=== PATIENT | male | born 1965 | race Caucasian/White ===

== ENCOUNTER → 2022-06-19 11:02 | Outpatient (CLI) | payer SELFPAY ==
[2022-06-19 12:19] LABS: Add Manual Diff / Slide Review NO; Basophils Absolute Auto 100 /uL (0-100); Basophils Percent Auto 0.8 % (0-2); Eosinophils Absolute Auto 100 /uL (0-450); Eosinophils Percent Auto 1.3 % (2-4); Hematocrit 43.6 % (41-53); Hemoglobin 14.8 g/dL (13.5-17.5); Lymphocytes Absolute Auto 1600 /uL (1100-4500); Lymphocytes Percent Auto 20.4 % (25-40); Mean Corpuscular Hemoglobin 28.3 PG (26-34); Mean Corpuscular Volume 83.1 fL (80-100); Monocytes Absolute Auto 600 /uL (0-900); Monocytes Percent Auto 6.9 % (3-14); Neutrophils Absolute Auto 5700 /uL (1500-7000); Neutrophils Percent Auto 70.6 % (50-75); Platelet Count 279 X10^3/uL (150-400); Red Blood Cell Count 5.25 X10^6/uL (4.5-5.9); Red Cell Distribution Width 13.4 % (11.6-14.8); White Blood Cell Count 8.1 X10^3/uL (4.5-11.0)
[2022-06-19 12:44] LABS: Alanine Aminotransferase 21 IU/L (<50); Albumin 4.5 g/dL (3.5-5.0); Albumin Globulin Ratio 1.4 (1.0-2.8); Alkaline Phosphatase 88 U/L (38-126); Amylase 44 U/L (30-110); Aspartate Aminotransferase 20 IU/L (17-59); BUN Creatinine Ratio 28.6 (6-22); Bilirubin Total 0.8 mg/dL (0.2-1.3); Blood Urea Nitrogen 22 mg/dL (9-20); Calcium 9.4 mg/dL (8.4-10.2); Carbon Dioxide 23 mmol/L (22-32); Chloride 95 mmol/L (98-107); Estimated Glomerular Filt Rate > 60 mL/min (>60); Globulin 3.2 g/dL (1.7-4.1); HEMOLYSIS < 15 (0-50); Lipase 85 U/L (23-300); Potassium 4.8 mmol/L (3.4-5.1); Sodium 131 mmol/L (137-145); Total Protein 7.7 g/dL (6.3-8.2)
[2022-06-19 13:01] LABS: Free T3, Triiodothyronine Free 3.83 pg/mL (2.77-5.27)
[2022-06-19 13:05] LABS: Hemoglobin A1C% w Est Avg Glu 11.8 % (4.0-6.0)
[2022-06-19 13:15] LABS: Thyroid Stimulating Hormone 0.172 uIU/mL (0.47-4.68)
[2022-06-19 13:42] LABS: Glucose 501 mg/dL (70-100)
== END ==
PROVIDERS: PCP Family Medicine; Referring Provider Nurse Practitioner; Visit Provider Nurse Practitioner
DX: Q45.3 Other congenital malformations of pancreas and pancreatic duct (principal); R73.01 Impaired fasting glucose
CPT/HCPCS: 36415; 80053; 82150; 83036; 83690; 84439; 84443; 84481; 85025

== ENCOUNTER 2023-10-22 18:28 | Emergency (ER) | payer SELFPAY ==
[2023-10-22] VITALS (10 sets, daily range): BP systolic 143–189; BP diastolic 63–89; PULSE 75–93; RESP 15–34; TEMP 37.4–39.4; O2SAT 92–96; BMI 32.5
--- NOTE | 2023-10-22 18:38 | DI.RAD.S_ITS ---
PROCEDURE: XR CHEST 1V INDICATIONS: chest pain TECHNIQUE: One view of the chest was acquired. COMPARISON: None. FINDINGS: Surgical changes and devices: None. Lungs and pleura: Lungs are clear. No pleural effusions or pneumothorax. Mediastinum: Mediastinal contours appear normal. Heart size is normal. Bones and chest wall: No suspicious bony lesions. Overlying soft tissues appear unremarkable. IMPRESSION: No acute pulmonary process. Dictated by: Rabia Ferreira M.D. on 10/22/2023 at 19:26 Approved by: Rabia Ferreira M.D. on 10/22/2023 at 19:26
--- NOTE | 2023-10-22 18:40 | EKG_ITS ---
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
--- NOTE | 2023-10-22 19:03 | PC.NURSE ---
Patient states he started having a cough with pain between his shoulder blades last night. Today patient was out in sun became dizzy and had fall too weak and unable to get up after fall.
[2023-10-22 19:14] LABS: Prothrombin Time 11.3 SECONDS (9.4-12.5)
[2023-10-22 19:16] LABS: PTT Partial Thromboplastin Tim 31 SECONDS (25.1-36.5)
[2023-10-22] MEDS: SODIUM CHLORIDE 0.9% 1,000 ML 1000 ML IV ×2 (19:18→20:06)
[2023-10-22 19:19] LABS: Add Manual Diff / Slide Review NO; Basophils Absolute Auto 0 /uL (0-100); Basophils Percent Auto 0.4 % (0-2); Eosinophils Absolute Auto 0 /uL (0-450); Eosinophils Percent Auto 0.2 % (2-4); Hematocrit 41.2 % (41-53); Hemoglobin 14.3 g/dL (13.5-17.5); Lymphocytes Absolute Auto 700 /uL (1100-4500); Lymphocytes Percent Auto 8.7 % (25-40); Mean Corpuscular HGB Conc 34.7 % (30-36); Mean Corpuscular Hemoglobin 29.1 PG (26-34); Monocytes Absolute Auto 1100 /uL (0-900); Monocytes Percent Auto 13.2 % (3-14); Neutrophils Absolute Auto 6400 /uL (1500-7000); Neutrophils Percent Auto 77.5 % (50-75); Platelet Count 242 X10^3/uL (150-400); Red Blood Cell Count 4.91 X10^6/uL (4.5-5.9); Red Cell Distribution Width 12.9 % (11.6-14.8); White Blood Cell Count 8.2 X10^3/uL (4.5-11.0)
[2023-10-22] MEDS: cefTRIAXone 2,000 MG in SODIUM CHLORIDE 0.9% 100 ML 200 MG IV (19:19)
[2023-10-22] MEDS: ASPIRIN 81 MG CHEW TAB 324 MG PO (19:19)
[2023-10-22 19:30] LABS: Alanine Aminotransferase 19 IU/L (<50); Albumin 4.5 g/dL (3.5-5.0); Albumin Globulin Ratio 1.4 (1.0-2.8); Alkaline Phosphatase 79 U/L (38-126); Aspartate Aminotransferase 25 IU/L (17-59); BUN Creatinine Ratio 25.5 (6-22); Blood Urea Nitrogen 25 mg/dL (9-20); Carbon Dioxide 23 mmol/L (22-32); Chloride 96 mmol/L (98-107); Creatine Kinase 78 U/L (55-170); Estimated Glomerular Filt Rate > 60 mL/min (>60); Globulin 3.2 g/dL (1.7-4.1); Glucose 474 mg/dL (70-100); HEMOLYSIS 23 (0-50); Lipase 69 U/L (23-300); Magnesium 2.1 mg/dL (1.6-2.3); Potassium 4.5 mmol/L (3.4-5.1); Sodium 129 mmol/L (137-145); Total Protein 7.7 g/dL (6.3-8.2)
[2023-10-22 19:31] LABS: Adenovirus Not Detected (Not Detect); B. parapertussis Not Detected (Not Detecte); Bordetella pertussis Not Detected (Not Detect); Chlamydophila pneumoniae Not Detected (Not Detect); Coronavirus 229E Not Detected (Not Detect); Coronavirus HKU1 Not Detected (Not Detect); Coronavirus NL 63 Not Detected (Not Detect); Coronavirus OC43 Not Detected (Not Detect); Human Metapneumovirus Not Detected (Not Detect); Human Rhinovirus/Enterovirus Not Detected (Not Detect); Influenza A Not Detected (Not Detect); Influenza B Not Detected (Not Detect); Mycoplasma pneumoniae Not Detected (Not Detect); Parainfluenza Virus 1 Not Detected (Not Detect); Parainfluenza Virus 2 Not Detected (Not Detect); Parainfluenza Virus 3 Not Detected (Not Detect); Parainfluenza Virus 4 Not Detected (Not Detect); Respiratory Syncytial Virus Not Detected (Not Detect)
[2023-10-22 19:32] LABS: Lactate (Lactic Acid) 3.2 mmol/L (0.7-2.1)
[2023-10-22 19:42] LABS: Troponin I 0.013 ng/mL (0.01-0.034)
[2023-10-22 19:47] LABS: SARS- CoV-2 Detected (Not Detecte)
[2023-10-22 19:48] LABS: Procalcitonin 0.179 ng/mL (<0.5)
--- NOTE | 2023-10-22 19:55 | ED.FEVER ---
HPI - Fever General Chief Complaint: Fever Stated Complaint: Dizziness, Fall. No thinners. Time Seen by Provider: 10/22/23 18:38 Source: patient Mode of arrival: Ambulatory History of Present Illness HPI Narrative: 57-year-old male with history of diabetes presents by EMS for evaluation after a fall. Patient walks with a walker at baseline and states that while he was walking ?I went too fast and it (the walker) got away from me? and he fell forward. Patient denies hitting his head, denies loss of consciousness, denies use of blood thinners. He states that he was felt generally poorly for ?months?. Patient tells triage that he thinks he may have a blocked artery because he has a ringing in his ears that has been present for several months. Patient noted to be febrile in triage. Related Data Previous Rx's Medication Instructions Recorded blood-glucose meter (Blood Glucose #1 ea 07/18/22 Monitoring kit) lancet with blood glucose test #300 ea 07/18/22 strips and pen needles combo pack metformin 500 mg tablet,extended 500 mg PO BID #60 tabs 07/18/22 release 24 hr Allergies Allergy/AdvReac Type Severity Reaction Status Date / Time No Known Drug Allergies Allergy Verified 10/22/23 18:37 Patient History Medical History Hyperlipidemia Hypertension Type 2 diabetes mellitus History of diabetes mellitus Surgical History History of coronary artery stent placement Social History Smoking Status: Former smoker Smoking Status: Former smoker alcohol intake frequency: 0-2 drinks per day Substance Use Type: does not use Exam Initial Vital Signs Initial Vital Signs: Vital Signs Pulse Rate 93 H 10/22/23 18:28 Pulse Oximetry 95 10/22/23 18:28 Const: Awake, alert, appears chronically unwell, disheveled Cardiac: regular rate, regular rhythm RESP: unlabored, clear bilaterally, no wheezing Skin: Warm, Dry, intact, no rashes Neuro: AO x3, CN II-XII grossly intact, moves all extremities, ambulatory with walker Course Orders Ordered: ED Orders 10/22/23 20:56 Urine Microscopic Stat Discontinued Medications Acetaminophen (Acetaminophen 325 Mg Tablet) 975 mg PO NOW ONE Stop: 10/22/23 19:56 Last Admin: 10/22/23 20:06 Dose: 975 mg Documented By: DUSTIN Aspirin (Aspirin 81 Mg Chew Tab) 324 mg PO NOW ONE Stop: 10/22/23 18:39 Last Admin: 10/22/23 19:19 Dose: 324 mg Documented By: JORGE Ceftriaxone Sodium 2,000 mg/ (Sodium Chloride) 100 mls @ 200 mls/hr IV NOW ONE Stop: 10/22/23 18:39 Last Infusion: 10/22/23 20:00 Dose: Infused Documented By: Admin: 10/22/23 19:19 Dose: 200 mls/hr Documented By: JORGE Sodium Chloride (Normal Saline 0.9%) 1,000 mls @ 1,000 mls/hr IV BOLUS ONE Stop: 10/22/23 19:38 Last Infusion: 10/22/23 20:18 Dose: Infused Documented By: [facility] Admin: 10/22/23 19:18 Dose: 1,000 mls/hr Documented By: DUSTIN Sodium Chloride (Normal Saline 0.9%) 1,000 mls @ 1,000 mls/hr IV BOLUS ONE Stop: 10/22/23 20:54 Last Infusion: 10/22/23 22:00 Dose: Infused Documented By: Admin: 10/22/23 20:06 Dose: 1,000 mls/hr Documented By: [facility] Vital Signs Vital signs: Vital Signs - 8 hr 10/22/23 22:51 Temperature 99.3 F Pulse Rate 75 Respiratory Rate 22 Blood Pressure 143/63 H Pulse Oximetry 92 MDM - Fever Differential Diagnosis Differential diagnosis: Likely cellulitis, fever of unknown origin and gastroenteritis Lab Data 10/22/23 18:54 10/22/23 18:54 Labs: Lab Results 10/22/23 10/22/23 10/22/23 Range/Units 18:35 18:54 20:56 WBC 8.2 (4.5-11.0) X10^3/uL RBC 4.91 (4.5-5.9) X10^6/uL Hgb 14.3 (13.5-17.5) g/dL Hct 41.2 (41-53) % MCV 84.0 (80-100) fL MCH 29.1 (26-34) PG MCHC 34.7 (30-36) % RDW 12.9 (11.6-14.8) % Plt Count 242 (150-400) X10^3/uL Neut % (Auto) 77.5 H (50-75) % Lymph % (Auto) 8.7 L (25-40) % [place] % (Auto) 13.2 (3-14) % Eos % (Auto) 0.2 L (2-4) % Baso % (Auto) 0.4 (0-2) % Neut # (Auto) 6400 (2948-4326) /uL Lymph # (Auto) 700 L (9410-6709) /uL [place] # (Auto) 1100 H (0-900) /uL Eos # (Auto) 0 (0-450) /uL Baso # (Auto) 0 (0-100) /uL PT 11.3 (9.4-12.5) SECONDS INR 1.0 (0.9-1.3) APTT 31 (25.1-36.5) SECONDS Sodium 129 L (137-145) mmol/L Potassium 4.5 (3.4-5.1) mmol/L Chloride 96 L (98-107) mmol/L Carbon Dioxide 23 (22-32) mmol/L BUN 25 H (9-20) mg/dL Creatinine 0.98 (0.66-1.25) mg/dL Estimated GFR > 60 (>60) mL/min BUN/Creatinine Ratio 25.5 H (6-22) Glucose 474 H (70-100) mg/dL Lactate 3.2 H (0.7-2.1) mmol/L Calcium 9.0 (8.4-10.2) mg/dL Magnesium 2.1 (1.6-2.3) mg/dL Total Bilirubin 1.0 (0.2-1.3) mg/dL AST 25 (17-59) IU/L ALT 19 (<50) IU/L Alkaline Phosphatase 79 (38-126) U/L Total Creatine Kinase 78 (55-170) U/L Troponin I 0.013 (0.01-0.034) ng/mL Total Protein 7.7 (6.3-8.2) g/dL Albumin 4.5 (3.5-5.0) g/dL Globulin 3.2 (1.7-4.1) g/dL Albumin/Globulin Ratio 1.4 (1.0-2.8) Lipase 69 (23-300) U/L Procalcitonin 0.179 (<0.5) ng/mL Urine RBC 0-1/hpf (0-5/HPF) Urine WBC None seen (0-5/HPF) Ur Squamous Epith Cells None seen (0-5/HPF) Urine Bacteria None seen (None) Hyaline Casts None seen (None) Ur Culture Indicated? Cult not indicated Vol Urine Centrifuged 10ml (spun) Chlamy pneumoniae PCR Not detected (Not Detect) Adenovirus (PCR) Not detected (Not Detect) B.parapertussis DNA PCR Not detected (Not Detecte) Coronavirus OC43 (PCR) Not detected (Not Detect) Coronavirus HKU1 (PCR) Not detected (Not Detect) Coronavirus 229E (PCR) Not detected (Not Detect) SARS-CoV-2 (PCR) Detected H (Not Detecte) Coronavirus NL63 (PCR) Not detected (Not Detect) Human Metapneumovir PCR Not detected (Not Detect) Influenza Type A (PCR) Not detected (Not Detect) Influenza Type B (PCR) Not detected (Not Detect) M. pneumoniae (PCR) Not detected (Not Detect) Parainfluenza 1 (PCR) Not detected (Not Detect) Parainfluenza 2 (PCR) Not detected (Not Detect) Parainfluenza 3 (PCR) Not detected (Not Detect) Parainfluenza 4 (PCR) Not detected (Not Detect) RSV (PCR) Not detected (Not Detect) Entero/Rhino (PCR) Not detected (Not Detect) Urine Dip Bedside Urine Glucose 1000 mg/dl Bedside Urine Bilirubin - Negative Bedside Urine Ketone - Negative Urine Specific [place] 1.015 Bedside Urine Occult Blood ++ Bedside Urine pH 6.0 Bedside Urine Protein ++ 100 Bedside Urine Urobilinogen - Negative Bedside Urine Nitrite - Negative Bedside Urine Leukocytes - Negative Esterase Imaging Data Chest x-ray: Radiologist's Impression: PROCEDURE: XR CHEST 1V INDICATIONS: chest pain TECHNIQUE: One view of the chest was acquired. COMPARISON: None. FINDINGS: Surgical changes and devices: None. Lungs and pleura: Lungs are clear. No pleural effusions or pneumothorax. Mediastinum: Mediastinal contours appear normal. Heart size is normal. Bones and chest wall: No suspicious bony lesions. Overlying soft tissues appear unremarkable. IMPRESSION: No acute pulmonary process. Dictated by: Rabia Ferreira M.D. on 10/22/2023 at 19:26 Approved by: Rabia Ferreira M.D. on 10/22/2023 at 19:26 ECG Data Interpretation: Normal sinus rhythm at 89 beats per minute. Normal axis, normal intervals, no ST T wave changes MDM Narrative Medical decision making narrative: Chronically unwell appearing patient presenting for evaluation after ground level fall. Found to be febrile on triage. No obvious source based on patient's exam and presenting complaint of generalized weakness. Empiric dose of Rocephin ordered, however patient has upper respiratory congestion and nonproductive cough suggest viral symptoms. Laboratory work shows WBC count 8.2, hemoglobin 14.3, platelet count 242, sodium 129, potassium 4.5, CO2 23, creatinine 0.98, glucose 474, troponin 0.013, procalcitonin 0.179. Chest x-ray negative for acute findings. Patient tested positive for COVID-19 on respiratory panel. Patient was given several L of IV fluids for hydration and Tylenol for antipyretic properties. He was counseled on his diagnosis and normal laboratory work other than elevated glucose. Patient was counseled to decrease sugar intake, when he arrived he had a nearly empty bottle of orange starburst flavored soda that it was likely contributing to his elevated sugars. Patient counseled on the importance of primary care follow up and compliance with diabetic medications. Discharge Plan Departure Patient Disposition: Home Clinical Impression: COVID-19, Hyperglycemia Instructions: COVID-19 Activity Restrictions/Additional Instructions: Your labs show that you have COVID-19 and a high blood sugar. Avoid sugary foods such as sodas or candy. Please follow up with a primary care doctor Prescriptions: No Action metformin 500 mg tablet extended release 24 hr 500 mg PO BID Qty: 60 3RF Rx Instructions: 1 tab (500mg) with dinner x3 days, then 1 tab (500mg) twice daily with food x2 weeks, then 2 tabs twice per day with food thereafter. (DME) blood-glucose meter [Blood Glucose Monitoring] Kit See Rx Instructions .Route Qty: 1 3RF Rx Instructions: Use to check blood sugar 4x daily (DME) lancet-gluc test strip-needles Combo Pack See Rx Instructions .Route Qty: 300 3RF Rx Instructions: Use to check blood sugar 4x daily Referrals: Maddie Mota ARNP [Primary Care Provider] - Stand Alone Forms: Patient Portal/API
[2023-10-22] MEDS: ACETAMINOPHEN 325 MG TABLET 975 MG PO (20:06)
[2023-10-22 20:34] LABS: Reflexed Lactate in 2 Hours Y
[2023-10-22 21:26] LABS: Bacteria Urine None Seen; RBC Urine 0-1/HPF (0-5/HPF); Urine Volume 10mL (spun); WBC Urine None Seen (0-5/HPF)
[2023-10-22 21:27] LABS: Culture Indicated Urine Cult Not Indicated; Hyaline Casts Urine None Seen; Squamous Epithelial Cell Urine None Seen (0-5/HPF)
== END 2023-10-22 23:00 | disposition home or self-care (01) ==
PROVIDERS: Emergency Provider Emergency Medicine; PCP Nurse Practitioner
DX: U07.1 COVID-19 (principal); E11.65 Type 2 diabetes mellitus with hyperglycemia; R07.9 Chest pain, unspecified; W18.30XA Fall on same level, unspecified, initial encounter
CPT/HCPCS: 36415; 71045; 80053; 81003; 81015; 82550; 83605; 83690; 83735; 84145; 84484; 85025; 85610; 85730; 87040; 87633; 93005; 96361; 96365; 99284; 99285; J0696

== ENCOUNTER 2025-02-25 09:26 | Observation (INO) | payer OTHER, SELFPAY ==
[2025-02-25] VITALS (25 sets, daily range): BP systolic 122–220; BP diastolic 58–103; PULSE 60–78; RESP 16–28; TEMP 36.6–37.1; O2SAT 95–99; BMI 32.5
--- NOTE | 2025-02-25 09:28 | DI.RAD.S_ITS ---
PROCEDURE: XR CHEST 1V
--- NOTE | 2025-02-25 09:33 | EKG_ITS ---
[facility]
--- NOTE | 2025-02-25 09:33 | ED_ITS ---
HPI - Chest Pain
--- NOTE | 2025-02-25 09:33 | ED.CHESTPAIN ---
HPI - Chest Pain General Chief Complaint: Chest Pain Stated Complaint: Pain in legs, arms, back, chest Time Seen by Provider: 02/25/25 09:29 History of Present Illness HPI narrative: Patient brought in by ambulance from the street. Patient was walking and had substernal chest tightness pain radiated to the back. Lasted about 10 or 15 minutes. Currently symptom free. No nausea or sweating or syncope. Patient has history of cardiac stent with 93% blockage he recalls from 3 years ago in [place]. Patient does not have any providers at this time. Does not smoke. Is not on any medications for his heart or diabetes. He has had off and on chest discomfort for a couple of years since his heart attack 3 years ago. [place]. Related Data Previous Rx's ?Medication ?Instructions ?Recorded blood-glucose meter (Blood Glucose #1 ea 07/18/22 Monitoring kit) lancet with blood glucose test #300 ea 07/18/22 strips and pen needles combo pack metformin 500 mg tablet,extended 1,000 mg (2 x 500 mg) PO BID #180 11/05/23 release 24 hr tabs Allergies Allergy/AdvReac Type Severity Reaction Status Date / Time No Known Drug Allergies Allergy Verified 02/25/25 09:34 Review of Systems Review of Systems Narrative: GENERAL: Negative chills, fatigue, malaise, fever, sweats. HEENT: Negative sinus pain, ear pain, sore throat RESPIRATORY: Negative dyspnea, cough CARDIOVASCULAR: Positive chest pain, negative palpitations GASTROINTESTINAL: Negative vomiting, nausea, abdominal pain : Negative dysuria, frequency, hematuria MUSCULOSKELETAL: Negative muscle or bony pain SKIN: Negative rash, skin lesions NEUROLOGIC: Negative weakness, numbness ROS Unobtainable: All systems reviewed & are unremarkable except as noted in HPI and below Patient History Medical History Hyperlipidemia Hypertension Type 2 diabetes mellitus History of diabetes mellitus Surgical History History of coronary artery stent placement Social History household members: none Smoking Status: Former smoker alcohol intake: current alcohol intake frequency: 0-2 drinks per day Exam Narrative Exam Narrative: GENERAL: in no distress, not toxic not dyspneic HEAD: Normocephalic. EYES: Pupils equal round ENT: Mucous membranes moist. NECK: Trachea midline. CARDIOVASCULAR: Regular rate and rhythm RESPIRATORY: Clear to auscultation. Breath sounds equal bilaterally. No wheezes, rales, or rhonchi. GASTROINTESTINAL: Abdomen soft, non-tender BACK: No flank tenderness. EXTREMITIES: No gross deformities. NEURO: AOx4. Clear speech SKIN: Warm and dry PSYCH: Not anxious, is cooperative Initial Vital Signs Initial Vital Signs: Vital Signs Pulse Rate 76 02/25/25 09:29 Pulse Oximetry 99 02/25/25 09:29 Scores HEART Score Heart Score history: Slightly Suspicious Heart Score EKG: Normal Heart Score Age: 45-64 years old Heart Score risk factors: > 3 risk factors or hx of atherosclerotic disease Heart Score troponin: < or = to normal limit Heart Score Total: 3 Course Orders Ordered: Aspirin (Aspirin Ec 81 Mg Tablet) 81 mg PO DAILY ON LICENSE OF [facility] Last Admin: 02/26/25 08:36 Dose: 81 mg Documented By: UGILLE Heparin Sodium (Porcine) (Heparin 5,000 Unit/Ml Vial) 5,000 unit SUBCUT BID ON LICENSE OF [facility] Last Admin: 02/26/25 08:36 Dose: 5,000 unit Documented By: Admin: 02/25/25 22:26 Dose: 5,000 unit Documented By: MALINI Sodium Chloride (Normal Saline 0.9%) 1,000 mls @ 100 mls/hr IV CONT ON LICENSE OF [facility] Last Admin: 02/26/25 03:48 Dose: 100 mls/hr Documented By: Infusion: 02/26/25 00:08 Dose: Infused Documented By: Admin: 02/25/25 14:08 Dose: 100 mls/hr Documented By: ANNA MARIE Dextrose (D10w) 100 mls @ 1,200 mls/hr IV PRN PRN PRN Reason: Hypoglycemia Insulin Glargine (Insulin Glargine 100 Unit/Ml 3ml Pen) 20 unit SUBCUT BEDTIME ON LICENSE OF [facility] Last Admin: 02/25/25 17:11 Dose: 20 unit Documented By: ANNA MARIE Co-signed By: RLSmiley Insulin Human Lispro (Insulin Lispro 100 Unit/Ml 3ml Vial) 0 unit SUBCUT ACHS ON LICENSE OF [facility]; Protocol Last Admin: 02/26/25 08:43 Dose: 1 unit Documented By: GUILLE Co-signed By: MALINI(2) Admin: 02/25/25 22:28 Dose: 2 unit Documented By: MALINI Co-signed By: Admin: 02/25/25 17:02 Dose: 5 unit Documented By: ANNA MARIE Co-signed By: SILVIA Admin: 02/25/25 12:13 Dose: 8 unit Documented By: ANNA MARIE Co-signed By: JOANNA Morphine Sulfate (Morphine 4 Mg/Ml Inj) 3 mg IV Q2HR PRN PRN Reason: Pain, Severe (7-10) Naloxone HCl (Naloxone 0.4 Mg/Ml Vial) 0.2 mg IV Q2MIN PRN PRN Reason: Opiate Reversal Ondansetron HCl (Ondansetron 4 Mg/2 Ml Inj) 4 mg IV Q8HR PRN PRN Reason: Nausea And Vomiting Discontinued Medications Aspirin (Aspirin 81 Mg Chew Tab) 324 mg PO NOW ONE Stop: 02/25/25 09:29 Last Admin: 02/25/25 09:42 Dose: 324 mg Documented By: SILVIA Atorvastatin Calcium (Atorvastatin 20 Mg Tablet) 40 mg PO NOW ONE Stop: 02/25/25 11:19 Last Admin: 02/25/25 12:15 Dose: 40 mg Documented By: ANNA MARIE Vital Signs Vital signs: Vital Signs - 8 hr 02/25/25 09:29 02/25/25 09:30 02/25/25 09:30 Temperature 98.0 F Pulse Rate 76 75 76 Respiratory Rate 16 28 H Blood Pressure 196/103 H Pulse Oximetry 99 99 98 Oxygen Delivery Method Room Air 02/25/25 09:32 02/25/25 09:32 02/25/25 10:00 Temperature Pulse Rate 78 72 Respiratory Rate 25 H Blood Pressure 196/103 H Pulse Oximetry 96 Oxygen Delivery Method 02/25/25 10:00 02/25/25 10:30 02/25/25 10:30 Temperature Pulse Rate 70 Respiratory Rate 26 H Blood Pressure 181/80 H 177/81 H Pulse Oximetry 95 Oxygen Delivery Method 02/25/25 11:00 Temperature Pulse Rate 67 Respiratory Rate 21 Blood Pressure Pulse Oximetry 95 Oxygen Delivery Method MDM - Chest Pain Lab Data 02/26/25 05:40 02/26/25 05:40 Labs: Lab Results 02/25/25 Range/Units 09:20 WBC 8.6 (4.5-11.0) X10^3/uL RBC 5.08 (4.5-5.9) X10^6/uL Hgb 14.6 (13.5-17.5) g/dL Hct 42.2 (41-53) % MCV 83.0 (80-100) fL MCH 28.7 (26-34) PG MCHC 34.5 (30-36) % RDW 13.1 (11.6-14.8) % Plt Count 259 (150-400) X10^3/uL Neut % (Auto) 64.3 (50-75) % Lymph % (Auto) 26.1 (25-40) % [place] % (Auto) 6.2 (3-14) % Eos % (Auto) 2.5 (2-4) % Baso % (Auto) 0.9 (0-2) % Neut # (Auto) 5600 (0518-9047) /uL Lymph # (Auto) 2300 (9146-5638) /uL [place] # (Auto) 500 (0-900) /uL Eos # (Auto) 200 (0-450) /uL Baso # (Auto) 100 (0-100) /uL PT 10.1 (9.4-12.5) SECONDS INR 0.9 (0.9-1.3) APTT 23 L (25.1-36.5) SECONDS Sodium 131 L (137-145) mmol/L Potassium 4.8 (3.4-5.1) mmol/L Chloride 96 L (98-107) mmol/L Carbon Dioxide 24 (22-32) mmol/L BUN 20 (9-20) mg/dL Creatinine 0.65 L (0.66-1.25) mg/dL Estimated GFR > 60 (>60) mL/min BUN/Creatinine Ratio 30.8 H (6-22) Glucose 491 H* (70-99) mg/dL Hemoglobin A1c 12.2 H (4.0-6.0) % Calcium 9.5 (8.4-10.2) mg/dL Magnesium 1.8 (1.6-2.3) mg/dL Total Bilirubin 0.6 (0.2-1.3) mg/dL AST 27 (17-59) IU/L ALT 21 (<50) IU/L Alkaline Phosphatase 80 (38-126) U/L Total Creatine Kinase 61 (55-170) U/L Troponin I < 0.012 (0.01-0.034) ng/mL NT-Pro-B Natriuret Pep 311 H (<125) pg/mL Total Protein 7.9 (6.3-8.2) g/dL Albumin 4.6 (3.5-5.0) g/dL Globulin 3.3 (1.7-4.1) g/dL Albumin/Globulin Ratio 1.4 (1.0-2.8) Lipase 78 (23-300) U/L Imaging Data Chest x-ray: Radiologist's Impression: [address] [address] XRay Report Signed Patient: Chidi Mota MR#: [id number] : 1965 Acct:[id number] Age/Sex: 59 / M Date of Service: 02/25/25 Loc: ED Accession Number: [id number] Procedure: XR chest 1V Ordering Provider: Alfredo Perry MD PROCEDURE: XR CHEST 1V INDICATIONS: Chest Pain TECHNIQUE: One view of the chest was acquired. COMPARISON: [facility], , XR CHEST 1V, 10/22/2023, 18:56. FINDINGS: Surgical changes and devices: None. Lungs and pleura: Lungs are clear. No pleural effusions or pneumothorax. Mediastinum: Mediastinal contours appear normal. Heart size is normal. Bones and chest wall: No suspicious bony lesions. Overlying soft tissues appear unremarkable. IMPRESSION: No acute cardiopulmonary abnormality is seen. Dictated by: Patti Copeland MD, PhD on 02/25/2025 at 9:45 Approved by: Patti Copeland MD, PhD on 02/25/2025 at 9:45 [facility] Narrative Medical decision making narrative: Patient brought in by ambulance from the street. Patient was walking and had substernal chest tightness pain radiated to the back. Lasted about 10 or 15 minutes. Currently symptom free. No nausea or sweating or syncope. Patient has history of cardiac stent with 93% blockage he recalls from 3 years ago in [place]. Patient does not have any providers at this time. Does not smoke. Is not on any medications for his heart or diabetes. He has had off and on chest discomfort for a couple of years since his heart attack 3 years ago. [place] MDM After history and exam, CBC CMP troponin chest x-ray EKG aspirin, exam is reassuring. Patient is symptom-free at this time. Differential considered: Includes but not limited to STEMI non-STEMI angina Medical records reviewed: No recent visit for this complaint Lab Test results independently reviewed as above. Pertinent findings: WBC 8.6 hemoglobin 14.6 INR 0.9 sodium 131 potassium 4.8 BUN 20 glucose 491 troponin less than 0.012 BNP 311 Independently reviewed EKG normal sinus rhythm normal EKG rate 75 Imaging studies independently reviewed: Chest x-ray no acute finding Consultations: 11:07 a.m.. Spoke with hospitalist dr pena, will admit patient Re-evaluations: 11:10 a.m.. Updated patient results and treatment plan for admission for stress test. He agrees. Discussion: Appropriate for admission for balance of workup for chest pain including stress test echocardiogram. Diagnosis: Chest pain Discharge Plan Departure Patient Disposition: Admitted as Observation Clinical Impression: Chest pain Qualifiers: Chest pain type: unspecified Qualified Code(s): R07.9 - Chest pain, unspecified Admit Date/Time: 02/25/25 11:05 Admit Provider: Sarkis Pena
[2025-02-25 09:37] LABS: Add Manual Diff / Slide Review NO; Hematocrit 42.2 % (41-53); Hemoglobin 14.6 g/dL (13.5-17.5); Lymphocytes Absolute Auto 2300 /uL (1100-4500); Mean Corpuscular HGB Conc 34.5 % (30-36); Mean Corpuscular Hemoglobin 28.7 PG (26-34); Mean Corpuscular Volume 83.0 fL (80-100); Platelet Count 259 X10^3/uL (150-400)
[2025-02-25] MEDS: ASPIRIN 81 MG CHEW TAB 324 MG PO (09:42)
[2025-02-25 09:44] LABS: INR 0.9 (0.9-1.3); Prothrombin Time 10.1 SECONDS (9.4-12.5)
[2025-02-25 09:47] LABS: PTT Partial Thromboplastin Tim 23 SECONDS (25.1-36.5)
[2025-02-25 09:49] LABS: Alanine Aminotransferase 21 IU/L (<50); Albumin 4.6 g/dL (3.5-5.0); Albumin Globulin Ratio 1.4 (1.0-2.8); Alkaline Phosphatase 80 U/L (38-126); Blood Urea Nitrogen 20 mg/dL (9-20); Calcium 9.5 mg/dL (8.4-10.2); Carbon Dioxide 24 mmol/L (22-32); Chloride 96 mmol/L (98-107); Creatine Kinase 61 U/L (55-170); Estimated Glomerular Filt Rate > 60 mL/min (>60); Globulin 3.3 g/dL (1.7-4.1); HEMOLYSIS 31 (0-50); Lipase 78 U/L (23-300); Magnesium 1.8 mg/dL (1.6-2.3); Potassium 4.8 mmol/L (3.4-5.1); Sodium 131 mmol/L (137-145); Total Protein 7.9 g/dL (6.3-8.2)
[2025-02-25 09:50] LABS: Glucose 491 mg/dL (70-99)
[2025-02-25 10:00] LABS: NT-proBNP (BNP-Adult 18+) 311 pg/mL (<125); Troponin I < 0.012 ng/mL (0.01-0.034)
[2025-02-25 11:44] LABS: Hemoglobin A1C% w Est Avg Glu 12.2 % (4.0-6.0)
[2025-02-25 11:54] LABS: Cholesterol 266 mg/dL (140-199); HDL Cholesterol 40 mg/dL (40-60); Triglycerides 513 mg/dL (35-150)
[2025-02-25] MEDS: INSULIN LISPRO 100 UNIT/ML 3ML VIAL SUBCUT ×3 (12:13→22:28)
[2025-02-25] MEDS: ATORVASTATIN 20 MG TABLET 40 MG PO (12:15)
[2025-02-25] MEDS: SODIUM CHLORIDE 0.9% 1,000 ML 100 ML IV (14:08)
[2025-02-25] MEDS: INSULIN GLARGINE 100 UNIT/ML 3ML PEN 20 UNIT SUBCUT (17:11)
[2025-02-25] MEDS: HEPARIN 5,000 UNIT/ML VIAL 5000 UNIT SUBCUT (22:26)
[2025-02-26 03:16] VITALS: BP 139/82; PULSE 60; RESP 18; TEMP 36.1; O2SAT 97
[2025-02-26] MEDS: SODIUM CHLORIDE 0.9% 1,000 ML 100 ML IV (03:48)
[2025-02-26 06:15] LABS: Add Manual Diff / Slide Review NO; Hematocrit 35.6 % (41-53); Hemoglobin 12.6 g/dL (13.5-17.5); Lymphocytes Absolute Auto 2800 /uL (1100-4500); Mean Corpuscular HGB Conc 35.4 % (30-36); Mean Corpuscular Hemoglobin 29.3 PG (26-34); Mean Corpuscular Volume 82.7 fL (80-100); Platelet Count 220 X10^3/uL (150-400)
[2025-02-26 06:22] LABS: Blood Urea Nitrogen 17 mg/dL (9-20); Calcium 8.4 mg/dL (8.4-10.2); Carbon Dioxide 23 mmol/L (22-32); Chloride 103 mmol/L (98-107); Estimated Glomerular Filt Rate > 60 mL/min (>60); Glucose 166 mg/dL (70-99); HEMOLYSIS < 15 (0-50); Potassium 3.7 mmol/L (3.4-5.1); Sodium 134 mmol/L (137-145)
[2025-02-26 07:00] VITALS: BP 171/92; PULSE 65; RESP 16; TEMP 37.4; O2SAT 98
[2025-02-26] MEDS: ASPIRIN EC 81 MG TABLET PO (08:36)
[2025-02-26] MEDS: HEPARIN 5,000 UNIT/ML VIAL 5000 UNIT SUBCUT ×2 (08:36→20:36)
[2025-02-26] MEDS: INSULIN LISPRO 100 UNIT/ML 3ML VIAL SUBCUT ×3 (08:43→17:58)
--- NOTE | 2025-02-26 11:47 | P.HP_ITS ---
History of Present Illness
--- NOTE | 2025-02-26 11:47 | PM.HP.1 ---
History of Present Illness History of Present Illness Date Patient Seen: 02/25/25 Chief complaint: Pain in legs, arms, back, chest Narrative: Chief complaint: Exertional pain radiating from the chest between the shoulder blades in a patient with previous cardiac stent 4 years ago and lost to follow up with uncontrolled diabetes History of present illness: 02/25: 59-year-old male with a previous history of stents performed stent [address] [facility] developed exertional chest pain with radiation between the shoulder blades but not associated with diaphoresis nausea. Findings in the emergency department significant for EKG with no acute ST segment or T-wave changes in normal sinus rhythm troponin below detection range glucose of 491 and pro BNP of 311 2D echocardiogram shows ejection fraction 60 65% and stage I diastolic dysfunction no wall motion abnormalities and no valvular abnormalities Review of systems: Patient is complaining of polydipsia polyuria That nausea vomiting diarrhea No abdominal pain No paresis Is reporting severe pain with walking in the bottom of his feet like he is walking on glass Charley horses in his calves when he gets up out of bed Physical exam: Obese elderly pleasant male no acute distress at the time of my examination HEENT unremarkable Heart rate and regular no murmurs Lungs are clear Abdomen nontender bowel sounds present Extremities no edema Hypertrophic nails For objective laboratory and imaging EKG please see the bottom of the note Assessment and plan: Chest pain with a history of coronary disease status post revascularization but without proper statin aspirin beta-dewayne due to noncompliance Resume all core measures (statin aspirin beta-dewayne) Reestablish glycemic control Stress test 02/27 with nuclear medicine scan Uncontrolled diabetes mellitus Resume basal bolus control Establish with a primary care for GDM T Foot care eye care and preventive maintenance Peripheral neuropathy secondary to type 2 diabetes Trial of Cymbalta DVT prophylaxis: Subcutaneous heparin Disposition: Observation status we will probably remain hospital 48 hours until stress test available We will need referral to a PCP to establish From there we will probably need referral to Cardiology Time based billin minutes were involved in the management of this patient including [id number] evaluation physical examination conversation with ER provider chart review review of objective laboratory EKG and imaging orders and discussion of treatment plan with nursing staff [facility] Medical History Hyperlipidemia Hypertension Type 2 diabetes mellitus History of diabetes mellitus Surgical History History of coronary artery stent placement Social History household members: none Smoking Status: Former smoker alcohol intake: current Meds Home Medications and Allergies Home Medications ?Medication ?Instructions ?Recorded ?Confirmed ?Type blood-glucose meter (Blood Glucose #1 ea 07/18/22 11/05/23 Rx Monitoring kit) lancet with blood glucose test #300 ea 07/18/22 11/05/23 Rx strips and pen needles combo pack metformin 500 mg tablet,extended 1,000 mg (2 x 500 mg) PO BID #180 11/05/23 02/25/25 Rx release 24 hr tabs Allergies Allergy/AdvReac Type Severity Reaction Status Date / Time No Known Drug Allergies Allergy Verified 02/25/25 09:34 Exam Vital Signs (past 8 hours): - 02/26/25 07:00 Temperature 99.3 F Pulse Rate 65 Respiratory Rate 16 Blood Pressure 171/92 H Pulse Oximetry 98 Oxygen Flow Rate 0 Oxygen Delivery Method Room Air Oxygen Flow Rate 0 Objective Labs 02/26/25 05:40 02/26/25 05:40 Labs: Laboratory Results - last 24 hr 02/25/25 02/25/25 02/25/25 12:09 17:00 20:31 WBC RBC Hgb Hct MCV MCH MCHC RDW Plt Count Neut % (Auto) Lymph % (Auto) [place] % (Auto) Eos % (Auto) Baso % (Auto) Neut # (Auto) Lymph # (Auto) [place] # (Auto) Eos # (Auto) Baso # (Auto) Sodium Potassium Chloride Carbon Dioxide BUN Creatinine Estimated GFR BUN/Creatinine Ratio Glucose POC Whole Bld Glucose 474 H* 287 H D 219 H Calcium Triglycerides Cholesterol LDL Cholesterol, Calc HDL Cholesterol 02/25/25 02/26/25 02/26/25 Unknown 05:40 08:21 WBC 8.1 RBC 4.30 L Hgb 12.6 L Hct 35.6 L MCV 82.7 MCH 29.3 MCHC 35.4 RDW 13.5 Plt Count 220 Neut % (Auto) 55.8 Lymph % (Auto) 34.4 [place] % (Auto) 6.5 Eos % (Auto) 2.7 Baso % (Auto) 0.6 Neut # (Auto) 4500 Lymph # (Auto) 2800 [place] # (Auto) 500 Eos # (Auto) 200 Baso # (Auto) 100 Sodium 134 L Potassium 3.7 Chloride 103 Carbon Dioxide 23 BUN 17 Creatinine 0.61 L Estimated GFR > 60 BUN/Creatinine Ratio 27.9 H Glucose 166 H D POC Whole Bld Glucose 187 H Calcium 8.4 Triglycerides 513 H Cholesterol 266 H LDL Cholesterol, Calc TNP HDL Cholesterol 40 Assessment & Plan Time-Based Coding :: [TOTAL MINUTES] spent with patient and on the chart (including review of chart, obtaining history, exam, reviewing outside data, placing orders, documenting exam and treatment plan, and counseling patient) on [DATE]. Quality VTE Deep Vein Thrombosis/Pulmonary Embolism Present on Admission: No
[2025-02-26 12:03] VITALS: BP 150/76; PULSE 62; RESP 15; TEMP 37.4; O2SAT 95
--- NOTE | 2025-02-26 16:25 | PM.PN.1 ---
Subjective Subjective Date Patient Seen: 02/26/25 Interval history: Chief complaint: Exertional pain radiating from the chest between the shoulder blades in a patient with previous cardiac stent 4 years ago and lost to follow up with uncontrolled diabetes History of present illness: 02/25: 59-year-old male with a previous history of stents performed stent [address] [facility] developed exertional chest pain with radiation between the shoulder blades but not associated with diaphoresis nausea. Findings in the emergency department significant for EKG with no acute ST segment or T-wave changes in normal sinus rhythm troponin below detection range glucose of 491 and pro BNP of 311 2D echocardiogram shows ejection fraction 60 65% and stage I diastolic dysfunction no wall motion abnormalities and no valvular abnormalities Hospital course: 02/26: Patient is still having neuropathic symptoms but no further episodes of chest pain slept well overnight blood sugars are now under very good cut sleeping control with basal bolus insulin Review of systems: Patient is complaining of polydipsia polyuria That nausea vomiting diarrhea No abdominal pain No paresis Is reporting severe pain with walking in the bottom of his feet like he is walking on glass Charley horses in his calves when he gets up out of bed Physical exam: Obese elderly pleasant male no acute distress at the time of my examination HEENT unremarkable Heart rate and regular no murmurs Lungs are clear Abdomen nontender bowel sounds present Extremities no edema Hypertrophic nails For objective laboratory and imaging EKG please see the bottom of the note Assessment and plan: Chest pain with a history of coronary disease status post revascularization but without proper statin aspirin beta-dewayne due to noncompliance Resume all core measures (statin aspirin beta-dewayne) Reestablish glycemic control Stress test 02/27 with nuclear medicine scan Uncontrolled diabetes mellitus Resume basal bolus control Establish with a primary care for GDM T Foot care eye care and preventive maintenance Peripheral neuropathy secondary to type 2 diabetes Trial of Cymbalta DVT prophylaxis: Subcutaneous heparin Disposition: Observation status we will probably remain hospital 48 hours until stress test available We will need referral to a PCP to establish From there we will probably need referral to Cardiology Time based billin minutes were involved in the management of this patient including [id number] evaluation physical examination conversation with ER provider chart review review of objective laboratory EKG and imaging orders and discussion of treatment plan with nursing staff Exam Vital Signs (past 8 hours): - 02/26/25 12:03 Temperature 99.4 F Pulse Rate 62 Respiratory Rate 15 Blood Pressure 150/76 H Pulse Oximetry 95 Oxygen Flow Rate 0 Oxygen Delivery Method Room Air Oxygen Flow Rate 0 Objective Labs 02/26/25 05:40 02/26/25 05:40 Labs: Laboratory Results - last 24 hr 02/25/25 02/25/25 02/26/25 17:00 20:31 05:40 WBC 8.1 RBC 4.30 L Hgb 12.6 L Hct 35.6 L MCV 82.7 MCH 29.3 MCHC 35.4 RDW 13.5 Plt Count 220 Neut % (Auto) 55.8 Lymph % (Auto) 34.4 [place] % (Auto) 6.5 Eos % (Auto) 2.7 Baso % (Auto) 0.6 Neut # (Auto) 4500 Lymph # (Auto) 2800 [place] # (Auto) 500 Eos # (Auto) 200 Baso # (Auto) 100 Sodium 134 L Potassium 3.7 Chloride 103 Carbon Dioxide 23 BUN 17 Creatinine 0.61 L Estimated GFR > 60 BUN/Creatinine Ratio 27.9 H Glucose 166 H D POC Whole Bld Glucose 287 H D 219 H Calcium 8.4 02/26/25 02/26/25 02/26/25 08:21 11:47 16:15 WBC RBC Hgb Hct MCV MCH MCHC RDW Plt Count Neut % (Auto) Lymph % (Auto) [place] % (Auto) Eos % (Auto) Baso % (Auto) Neut # (Auto) Lymph # (Auto) [place] # (Auto) Eos # (Auto) Baso # (Auto) Sodium Potassium Chloride Carbon Dioxide BUN Creatinine Estimated GFR BUN/Creatinine Ratio Glucose POC Whole Bld Glucose 187 H 242 H 213 H Calcium [facility] Medical History Hyperlipidemia Hypertension Type 2 diabetes mellitus History of diabetes mellitus Surgical History History of coronary artery stent placement Social History household members: none Smoking Status: Former smoker alcohol intake: current Assessment & Plan Time-Based Coding :: [TOTAL MINUTES] spent with patient and on the chart (including review of chart, obtaining history, exam, reviewing outside data, placing orders, documenting exam and treatment plan, and counseling patient) on [DATE]. Quality VTE Deep Vein Thrombosis/Pulmonary Embolism Present on Admission: No
[2025-02-26 17:36] VITALS: BP 163/83; PULSE 67; TEMP 36.8; O2SAT 98
[2025-02-26] MEDS: INSULIN LISPRO 100 UNIT/ML 3ML VIAL 7 UNIT SUBCUT (18:07)
[2025-02-26] MEDS: INSULIN GLARGINE 100 UNIT/ML 3ML PEN 20 UNIT SUBCUT (20:36)
[2025-02-26] MEDS: ATORVASTATIN 20 MG TABLET 40 MG PO (20:37)
[2025-02-26 21:00] VITALS: BP 141/77; PULSE 69; RESP 18; TEMP 36.8; O2SAT 95
[2025-02-27 01:00] VITALS: BP 132/77; PULSE 65; RESP 20; TEMP 36.6; O2SAT 93
[2025-02-27 05:00] VITALS: BP 108/71; PULSE 56; RESP 16; TEMP 36.6; O2SAT 95
[2025-02-27 06:53] LABS: Add Manual Diff / Slide Review NO; Hematocrit 37.5 % (41-53); Hemoglobin 13.2 g/dL (13.5-17.5); Lymphocytes Absolute Auto 2300 /uL (1100-4500); Mean Corpuscular HGB Conc 35.2 % (30-36); Mean Corpuscular Hemoglobin 28.9 PG (26-34); Mean Corpuscular Volume 82.1 fL (80-100); Platelet Count 218 X10^3/uL (150-400)
[2025-02-27 07:06] LABS: Blood Urea Nitrogen 16 mg/dL (9-20); Calcium 8.6 mg/dL (8.4-10.2); Carbon Dioxide 26 mmol/L (22-32); Chloride 103 mmol/L (98-107); Estimated Glomerular Filt Rate > 60 mL/min (>60); Glucose 146 mg/dL (70-99); HEMOLYSIS < 15 (0-50); Potassium 3.8 mmol/L (3.4-5.1); Sodium 133 mmol/L (137-145)
[2025-02-27 08:00] VITALS: BP 126/82; PULSE 60; RESP 17; TEMP 36.7; O2SAT 94
--- NOTE | 2025-02-27 11:31 | CM.DANOTE ---
Initial DCP Assessment Visit Note Reviewed EMR and team rounds for pt's medical status and updates. Went to go meet with pt, however he was down doing his stress test at the time of this visit. Pt lives independently at baseline in Sunday. He will likely need a taxi and ferry pass for the ride ivis home. No CM d/c needs are identified at this time other than a referral to obtain a PCP. Payor: Nicko No PCP at this time Pt is a 59 year-old M who presented to the ED via EMS after he was found on the ground in Sunday. Pt shared that he had been having acute chest tightness and pain that radiated towards his back, lasting approx. 15-minutes. Pt was non-symptomatic by the time he arrived to the ED. Plan was made to admit to [facility] for further cardiac monitoring, stress test, and ECHO. DCP will continue to monitor for any further evolving d/c needs prior to his departure. Discharge Planning/Care Management CM Discharge Assessment Start: 02/25/25 11:08 Freq: Status: Active Protocol: Document 02/27/25 11:29 DPL (Rec: 02/27/25 11:31 DPL [id number]) Discharge Planning Assessment Assigned Discharge CAMILLA Russo [employer] Insurance Nicko Advance Directives? No History Provided By Medical Record Expected Length of 2 Stay Has Patient been No admitted in last 30 days? Prior Living House Arrangements Household Members none Type of Drives own vehicle transporation used prior to admit Independent with ADL Yes 's Is patient alert and Yes oriented? Comment N/A Caregiver for No Another Comment Sent a message to the TCM group re: pt needing a PCP for diabetes and cardiac f/u. Barriers to No Discharge Discharge Plan Home Referrals Initiated None needed Whiteboard Updated Yes in Patient Room with name and ext. # of Automatic Thread Winder Review Status In Process Please Provide Date 02/27/25 Initial DC Assessment Was Performed
[2025-02-27 12:00] VITALS: BP 139/90; PULSE 63; RESP 15; TEMP 36.6; O2SAT 94
--- NOTE | 2025-02-27 12:52 | PC.NURSE ---
Talked to provider for the patient Dr. Mondragon, pt no longer NPO, resume carb diet,
--- NOTE | 2025-02-27 14:57 | P.DS_ITS ---
History of Present Illness
--- NOTE | 2025-02-27 14:57 | PM.DS.1 ---
History of Present Illness History of Present Illness Date Patient Seen: 02/27/25 Chief complaint: Pain in legs, arms, back, chest Narrative: Chief complaint: Exertional pain radiating from the chest between the shoulder blades in a patient with previous cardiac stent 4 years ago and lost to follow up with uncontrolled diabetes History of present illness: 02/25: 59-year-old male with a previous history of stents performed stent 4 years ago in [facility] developed exertional chest pain with radiation between the shoulder blades but not associated with diaphoresis nausea. Findings in the emergency department significant for EKG with no acute ST segment or T-wave changes in normal sinus rhythm troponin below detection range glucose of 491 and pro BNP of 311 2D echocardiogram shows ejection fraction 60 65% and stage I diastolic dysfunction no wall motion abnormalities and no valvular abnormalities Hospital course: 02/26: Patient is still having neuropathic symptoms but no further episodes of chest pain slept well overnight blood sugars are now under very good cut sleeping control with basal bolus insulinospital course: 02/27: Stress test was low risk: IMPRESSION: 1. Possibly abnormal but low risk myocardial perfusion study. 2. Small, subtle, predominantly reversible but slightly fixed distal inferior perfusion defect and a pattern that would be consistent with diaphragmatic attenuation artifact, but there are no prone images available to assess for this. Thus, a small volume of ischemia cannot be excluded, but if present, it occupies a small volume and is low risk. 3. Preserved left ventricular systolic function without any focal wall motion abnormality with mildly increased left ventricular volumes. 4. No angina or ECG evidence of ischemia with pharmacologic vasodilator stress. There were no arrhythmias. Review of systems: No further polydipsia polyuria No vomiting diarrhea No abdominal pain No paresis Physical exam: Obese elderly pleasant male no acute distress at the time of my examination HEENT unremarkable Heart rate and regular no murmurs Lungs are clear Abdomen nontender bowel sounds present Extremities no edema Hypertrophic nails For objective laboratory and imaging EKG please see the bottom of the note Assessment and plan: Chest pain with a history of coronary disease status post revascularization but without proper statin aspirin beta-dewayne due to noncompliance Resume all core measures (statin aspirin beta-dewayne) Reestablish glycemic control Stress test 02/27 with nuclear medicine scan low risk Uncontrolled diabetes mellitus Resume basal bolus control Establish with a primary care for GDM T Foot care eye care and preventive maintenance Peripheral neuropathy secondary to type 2 diabetes Trial of Cymbalta DVT prophylaxis: Subcutaneous heparin Disposition: Discharge to home follow up with PCP Time based billin minutes were involved in the management of this patient including [id number] evaluation physical examination conversation with ER provider chart review review of objective laboratory EKG and imaging orders and discussion of treatment plan with nursing staff Discharge Providers Provider Date of admission: 02/25/25 11:05 Discharge Date: 02/27/25 Primary care physician: KASH Morrison Consults: 02/25/25 16:53 Consult to Dietitian, Adult Routine Comment: Reason For Exam: A1c 12.2% Discharge provider: Sarkis Mondragon MD Exam Vital Signs (past 8 hours): - 02/27/25 08:00 02/27/25 12:00 Temperature 98.1 F 97.8 F Pulse Rate 60 63 Respiratory Rate 17 15 Blood Pressure 126/82 139/90 Pulse Oximetry 94 94 Oxygen Flow Rate 0 0 Oxygen Delivery Method Room Air Oxygen Flow Rate 0 Objective Labs 02/27/25 06:00 02/27/25 06:00 Labs: Laboratory Results - last 24 hr 02/26/25 02/26/25 02/27/25 16:15 20:22 06:00 WBC 7.4 RBC 4.57 Hgb 13.2 L Hct 37.5 L MCV 82.1 MCH 28.9 MCHC 35.2 RDW 13.2 Plt Count 218 Neut % (Auto) 59.3 Lymph % (Auto) 30.6 [place] % (Auto) 7.0 Eos % (Auto) 2.5 Baso % (Auto) 0.6 Neut # (Auto) 4400 Lymph # (Auto) 2300 [place] # (Auto) 500 Eos # (Auto) 200 Baso # (Auto) 0 Sodium 133 L Potassium 3.8 Chloride 103 Carbon Dioxide 26 BUN 16 Creatinine 0.64 L Estimated GFR > 60 BUN/Creatinine Ratio 25.0 H Glucose 146 H POC Whole Bld Glucose 213 H 164 H Calcium 8.6 02/27/25 02/27/25 08:06 12:06 WBC RBC Hgb Hct MCV MCH MCHC RDW Plt Count Neut % (Auto) Lymph % (Auto) [place] % (Auto) Eos % (Auto) Baso % (Auto) Neut # (Auto) Lymph # (Auto) [place] # (Auto) Eos # (Auto) Baso # (Auto) Sodium Potassium Chloride Carbon Dioxide BUN Creatinine Estimated GFR BUN/Creatinine Ratio Glucose POC Whole Bld Glucose 155 H 167 H Calcium PFSH Medical History Hyperlipidemia Hypertension Type 2 diabetes mellitus History of diabetes mellitus Surgical History History of coronary artery stent placement Social History household members: none alcohol intake: current Discharge Plan Discharge Plan Patient Disposition: Home Discharge orders & Medications Prescriptions: New atorvastatin 20 mg Tablet 40 mg PO BEDTIME Qty: 90 0RF aspirin 81 mg Tablet,Delayed Release (Dr/Ec) 81 mg PO DAILY Qty: 1 0RF duloxetine 20 mg Capsule,Delayed Release(Dr/Ec) 20 mg PO BEDTIME Qty: 90 0RF insulin glargine [Lantus Solostar U-100 Insulin] 100 unit/mL (3 mL) Insulin Pen 20 unit SUBCUT BEDTIME Qty: 15 0RF insulin lispro [Admelog U-100 Insulin lispro] 100 unit/mL Solution 7 unit SUBCUT AC Qty: 15 0RF Continued (DME) blood-glucose meter Kit See Rx Instructions .Route Qty: 1 3RF Rx Instructions: Use to check blood sugar 4x daily metformin 500 mg tablet extended release 24 hr 1,000 mg PO BID Qty: 180 3RF Rx Instructions: 2 tabs twice per day with food. No Action (DME) lancet-gluc test strip-needles Combo Pack See Rx Instructions .Route Qty: 300 3RF Rx Instructions: Use to check blood sugar 4x daily Follow up/Referrals: Maddie Mota ARNP [Primary Care Provider, Family Practice] - 03/11/25 Visit Report/Discharge Packet Stand Alone Forms: Patient Portal/API, Stroke Signs & Symptoms Discharge Data Primary Care Provider: Maddie Mota Attending Provider: Sarkis Mondragon Admit Date/Time: 02/25/25 11:05 Quality VTE Deep Vein Thrombosis/Pulmonary Embolism Present on Admission: No
--- NOTE | 2025-02-27 15:34 | DIET.CONS ---
Dietary Consultation Note Admission Date: 02/25/2025 11:05 Assessment: 59 y M admitted for chest pain. Dietitian consulted for A1c 12.2%. Met with pt in room. Report was on insulin 1 yr ago (injected BID) then transitioned to metformin. Remembers how to deliver insulin. Reports no previous nutrition DM educ. Eats 3 meals a day, various things. Ht: 175.26 cm Wt: 99.79 kg BMI: 32.5 UBW: 101 kg on 11/05/23 Last BM: 02/25/25 (02/25/25 11:08) MNA: 11 Kevin Score: 20 Diet: 02/26/25 Breakfast Carbohydrate Consistent Diet Diet Modifications: heart healthy Carbohydrate level: Large (4 CHO) Reflex DM orders: No Food Texture: Level 7 - Regular Liquid Consistency: Level 0 - Thin Nutrition Percent Meal Consumed NPO 02/27/25 07:00 Percent Meal Consumed 100% 02/26/25 18:33 Percent Meal Consumed 100% 02/26/25 17:39 Percent Meal Consumed 100% 02/26/25 13:11 Percent Meal Consumed 75% 02/26/25 09:45 Labs: RBC 4.57 X10^6/uL (4.5-5.9) 02/27/25 06:00 Hgb 13.2 g/dL (13.5-17.5) L 02/27/25 06:00 Hct 37.5 % (41-53) L 02/27/25 06:00 Creatinine 0.64 mg/dL (0.66-1.25) L 02/27/25 06:00 Hemoglobin A1c 12.2 % (4.0-6.0) H 02/25/25 09:20 NT-Pro-B Natriuret Pep 311 pg/mL (<125) H 02/25/25 09:20 Nutrition Diagnosis: Altered nutrition related lab values (A1c) r/t endocrine dysfunction aeb A1c 12.2% Interventions: -Provided and reviewed handout on BG numbers to aim for, A1c, and treating lows -Provided and reviewed handout on macros, myplate method, CHO amounts, pairing, and foods that have CHO -Provided information on DM OP educ and scheduling number for when he gets a PCP EER: 45-60 g CHO meals Monitoring/Evaluations: BG Electronically Signed by: Tammy Mota 02/27/25 15:34 Clinical Dietitian [address] [id number]
[2025-02-27 16:00] VITALS: BP 131/78; PULSE 59; RESP 16; TEMP 36.6; O2SAT 94
[2025-02-27 16:52] VITALS: BP 133/71; PULSE 71; RESP 16; TEMP 36.7; O2SAT 97
== END 2025-02-27 17:15 | disposition home or self-care (01) ==
LOC: ED 10:38 → AC 11:05
PROVIDERS: Admitting Provider Internal Medicine; Emergency Provider Emergency Medicine; PCP Nurse Practitioner; Referring Provider Emergency Medicine; Visit Provider Internal Medicine
DX: R07.89 Other chest pain (principal); E11.42 Type 2 diabetes mellitus with diabetic polyneuropathy; I25.2 Old myocardial infarction; Z95.818 Presence of other cardiac implants and grafts; Z87.891 Personal history of nicotine dependence
CPT/HCPCS: 36415; 71045; 78452; 80048; 80053; 80061; 81003; 82550; 82962; 83036; 83690; 83735; 83880; 84484; 85025; 85610; 85730; 93005; 93017; 93306; 96360; 96361; 96372; 99284; G0378; A9502; J1644; J1815; J2785; J7030